=== PATIENT | male | born 1985 | race Caucasian/White ===

== ENCOUNTER 2018-03-29 16:59 | Emergency (ER) | payer OTHER ==
[~2018-03-29] VITALS: Wt 104.3 kg
[2018-03-29 17:02] VITALS: BP 116/80; PULSE 92; RESP 20
[2018-03-29] MEDS ORDERED: CEPH-443 PO (17:36)
[2018-03-29] MEDS ORDERED: SULF1TAB31 PO (17:36)
--- NOTE | 2018-03-29 17:40 | ERD ---
ER Documentation Chief Complaint Chief Complaint LEFT WRIST ABSCESS X3DAYS HPI 32-year-old homeless male presents with an area of redness and swelling to his left distal wrist that has had for 3 days. The area is now open and draining pus. No fevers. He covered the wound. He is right-hand dominant. ROS All systems reviewed and are negative except as per history of present illness. Medications Home Meds Active Scripts Cephalexin* (Keflex*) 500 Mg Capsule, 500 MG PO QID for 7 Days, CAP Prov:OFELIA MONSALVE PA-C 03/29/18 Sulfamethoxazole/Trimethoprim* (Bactrim Ds* Tablet) 1 Each Tablet, 1 TAB PO BID, #14 TAB Prov:OFELIA MONSALVE PA-C 03/29/18 Allergies Allergies: Coded Allergies: No Known Allergy (Unverified , 03/29/18) PMhx/Soc Medical and Surgical Hx: pt denies Medical Hx, pt denies Surgical Hx Hx Alcohol Use: Yes Hx Substance Use: Yes Hx Tobacco Use: Yes Smoking Status: Current some day smoker FmHx Family History: No diabetes Physical Exam Vitals Vital Signs Date Temp Pulse Resp B/P (MAP) Pulse Ox O2 O2 Flow FiO2 Time Delivery Rate 03/29/18 98.1 92 20 116/80 99 17:02 (92) Physical Exam Const: No acute distress Head: Atraumatic Eyes: Normal Conjunctiva ENT: Normal External Ears, Nose and Mouth. Neck: Full range of motion. No meningismus. Resp: Clear to auscultation bilaterally Cardio: Regular rate and rhythm, no murmurs Abd: Soft, non tender, non distended. Normal bowel sounds Skin: Left wrist has abscess on medial aspect approximately 3 cm in diameter is already open and draining purulent drainage Procedures/MDM Patient has an abscess is already open and draining so I just applied pressure to get all the purulent drainage out. The would was appropriately dressed and bandaged. Pt was given prescription for bactrim and keflex. I recommended that pt return in 2 days for a wound check. Patient counseled regarding my diagnostic impression and care plan. Prior to discharge all questions answered. Pt agrees with treatment plan and understands strict return precautions. Pt is instructed to follow up with primary care provider within 24-48 hours. Precautionary instructions provided including instructions to return to the ER if not improving or for any worsening or changing symptoms or concerns. Departure Diagnosis: Primary Impression: Abscess Condition: Stable Patient Instructions: Abscess, Incision And Drainage Additional Instructions: Call your primary care doctor TOMORROW for an appointment during the next 1-2 days.See the doctor sooner or return here if your condition worsens before your appointment time. OFELIA MONSALVE PA-C Mar 29, 2018 17:40
== END 2018-03-29 17:40 | disposition home or self-care (01) ==
LOC: FTE 16:59
DX: L02.414 Cutaneous abscess of left upper limb (principal); F17.210 Nicotine dependence, cigarettes, uncomplicated
CPT/HCPCS: 99283